=== PATIENT | female | born 1955 | race Caucasian/White ===

== ENCOUNTER → 2019-05-11 | Day surgery (SDC) | payer MEDICARE, OTHER ==
[2019-05-10 09:15] VITALS: BMI 33.0
[~2019-05-11] MED LIST: Acetaminophen 325 MG TAB PO PRN; Bisacodyl 10 MG SUPP PR PRN; Clindamycin/D5W 900 MG in Premix Bag 1 BAG IVPB SCH; Clindamycin/D5W 900 mg/50 ml Premix Bag ONE; Dexamethasone 4 mg/ml Vial SLOW IVP SCH; Dextrose 5% in Water 1,000 ML IV PRN; Dextrose 50% Abboject 50 ML SYRINGE IVP PRN; Fentanyl 100 MCG/2 ML VIAL ONE; Fleet Enema 133 ML BOT PR PRN; Levofloxacin 500 mg/D5W 100 ml Premix Bag ONE; Mag-Al 1200 mg/1200 mg/30 ML UDCUP PO PRN; Meperidine HCl/PF 25 MG/ML VIAL SLOW IVP PRN; Milk Of Magnesia 30 ML UDCUP PO PRN; Ondansetron HCl/PF 4 MG/2 ML Vial IVP PRN; Ondansetron PF 4 MG/2 ML Vial IVP PRN; PROVENTIL INHALER 6.7 G (200 INHALATIONS) INH PRN; Phenylephrine HCL 10 MG/ML VIAL ONE; Promethazine HCl 25 MG/ML VIAL IM PRN; Promethazine HCl 25 MG/ML VIAL IM/IV PRN; SUGAMMADEX SODIUM 200 MG/2 ML VIAL ONE; Scopolamine 1.5 mg/72 hour Patch ONE; Sodium Chloride 0.9% 10 ML ONE; Thrombin 5000 UNITS/5 ML VIAL ONE
[2019-05-11 06:53] LABS: INR-International Normal Ratio 0.9; PTT 31.2 SEC (22.9-36.1); Prothrombin Time 12.4 SEC (12.0-14.7)
--- NOTE | 2019-05-11 11:12 | OP ---
DATE OF PROCEDURE: 05/11/2019 LOCATION: OR 12. WOUND CLASSIFICATION: Type 1 wound. [employer]: Harjinder. PREPROCEDURE DIAGNOSIS: Cervical stenosis with neck pain and arm pain consistent with cervical radiculopathy. POSTPROCEDURE DIAGNOSIS: Cervical stenosis with neck pain and arm pain consistent with cervical radiculopathy. PROCEDURES PERFORMED: 1. C5-C6, C6-C7 anterior diskectomies for decompression of spinal cord nerve roots, preparation of endplates for arthrodesis with placement of interbody spacer, C5-C6, C6-C7. 2. Packing of spacers for arthrodesis with local bone autograft obtained from same incision, allograft. 3. Anterior cervical plate and screw fixation at C5, C6, C7 for fusion. 4. Use of operative microscope for microdissection. DESCRIPTION OF PROCEDURE: After informed consent was obtained from the patient, the patient was brought to the OR. Proper patient, pause, and identification were carried out. The patient was placed under excellent general endotracheal anesthesia and positioned supine on the OR table. All appropriate points were padded. We identified the right anterior oblique linnea that would allow for approach to the anterior C5, C6, C7 segments, and sterile cleansing, preparation, and draping occurred. We then proceeded lateral to the tracheoesophageal bundle medial to the right carotid sheath. We identified the prevertebral layer of deep cervical fascia. Retractors were placed. Localization film confirmed our area of interest. We then performed C5-C6 distraction and we were pleased at that point with our distraction. Diskectomy was then performed with the use of the microscope for microdissection with excellent decompression of common dural tube and C6 nerve roots. Endplates were prepared. Arthrodesis was then initiated with an interbody spacer, packed with graft. We then did the same procedure at C6-C7 with excellent decompression of the common dural tube and bilateral C7 nerve roots. Endplates were prepared and arthrodesis was then initiated again with interbody spacer placement, packed with graft. Copious irrigation occurred throughout as did maximizing hemostasis. We then removed the microscope, and anterior cervical plate and screw fixation at C5, C6 C7 occurred. Hemostasis was maximized. The wound was then closed in anatomic layers following placement of a drain. Job ID: [id number]
[2019-05-11] MEDS: Sodium Chloride 0.9% 1,000 ML IV SCH ×2 (14:28→23:43)
[2019-05-11] MEDS: HYDROcodone/Acetaminophen 10/325 mg Tablet PO PRN ×2 (14:29→20:37)
[2019-05-11] MEDS: tiZANidine HCl 4 MG TAB PO PRN ×2 (14:29→20:37)
[2019-05-11] MEDS: Morphine 4 MG/ML VIAL SLOW IVP PRN ×2 (15:21→21:31)
[2019-05-11] MEDS: Citalopram 20 MG TAB PO SCH (20:28)
[2019-05-11] MEDS: Losartan 25 MG TAB PO SCH (20:28)
[2019-05-11] MEDS: Atorvastatin Calcium 10 MG TAB PO SCH (20:28)
[2019-05-11] MEDS: Gabapentin 300 MG CAP PO SCH (20:28)
[2019-05-11] MEDS: Hyoscyamine Sulfate ER 0.375 mg Tablet PO SCH (20:29)
[2019-05-11] MEDS: Clindamycin/D5W 900 MG in Premix Bag 1 BAG IVPB SCH (23:42)
[2019-05-12] MEDS: Hyoscyamine Sulfate ER 0.375 mg Tablet PO SCH ×2 (09:33→21:29)
[2019-05-12] MEDS: Pioglitazone HCl 15 MG TAB PO SCH (09:33)
[2019-05-12] MEDS: Clindamycin/D5W 900 MG in Premix Bag 1 BAG IVPB SCH ×3 (09:33→23:42)
[2019-05-12] MEDS: Gabapentin 300 MG CAP PO SCH ×2 (09:33→21:28)
[2019-05-12] MEDS: HYDROcodone/Acetaminophen 10/325 mg Tablet PO PRN (09:33)
--- NOTE | 2019-05-12 09:43 | PRG ---
DATE OF SERVICE: 05/12/2019 Ms. Barcenas is postoperative day 1 from C5 to C7 ACDF. She has had resolution in her cervical radiculopathy. Obviously, she has soreness in her cervical paraspinal region with moderate dysphonia. Her drain output has been approximately 20 mL, although there appears to be a bit more in it at this morning than 20 mL. Nevertheless, I think she needs one more day in the hospital for recovery, not unusual with a two-level fusion at her age. Job ID: [id number]
[2019-05-12] MEDS: tiZANidine HCl 4 MG TAB PO PRN (11:00)
[2019-05-12] MEDS: Morphine 4 MG/ML VIAL SLOW IVP PRN ×2 (11:00→21:40)
[2019-05-12] MEDS: HumaLOG 300 UNITS/3 ML VIAL SC PRN ×3 (12:54→22:50)
[2019-05-12] MEDS: Sodium Chloride 0.9% 1,000 ML IV SCH (12:55)
--- NOTE | 2019-05-12 19:48 | PDOC.PN ---
- Subjective Encounter Start Date: 05/12/19 Encounter Start Time: 18:00 Subjective: has some difficulty swallowing, no sob -: pain is better this evening -: at bedside - Objective MAR Reviewed: Yes Vital Signs & Weight: Vital Signs (12 hours) Temp Pulse Resp BP Pulse Ox 05/12/19 15:40 98.1 F 93 16 136/88 93 L 05/12/19 10:56 98.3 F 96 18 143/86 H 98 Weight Weight 175 lb I&O: 05/11/19 05/12/19 05/13/19 06:59 06:59 06:59 Intake Total 1160 Output Total 20 20 Balance 1140 -20 Additional Labs: Accuchecks 05/12/19 05/12/19 05/12/19 16:39 10:53 06:07 POC Glucose 184 H 212 H 193 H 05/11/19 20:18 POC Glucose 145 H Phys Exam - Physical Examination HEENT: PERRLA, sclera anicteric Neck: no JVD has surgical dressing+ Respiratory: no wheezing, no rales Cardiovascular: RRR, no significant murmur Gastrointestinal: soft, non-tender, positive bowel sounds Musculoskeletal: no edema, pulses present Neurological: non-focal, moves all 4 limbs Psychiatric: normal affect, A&O x 3 Dx/Plan (1) Asthma Code(s): J45.909 - UNSPECIFIED ASTHMA, UNCOMPLICATED Status: Chronic Qualifiers: Asthma severity: mild Asthma persistence: intermittent Asthma complication type: uncomplicated Qualified Code(s): J45.20 - Mild intermittent asthma, uncomplicated (2) DM type 2 (diabetes mellitus, type 2) Status: Chronic Qualifiers: Diabetes mellitus intermediate frame tender insulin use: without jail use (3) HTN (hypertension) Code(s): I10 - ESSENTIAL (PRIMARY) HYPERTENSION Status: Chronic Qualifiers: Hypertension type: essential hypertension Qualified Code(s): I10 - Essential (primary) hypertension (4) Dyslipidemia Code(s): E78.5 - HYPERLIPIDEMIA, UNSPECIFIED Status: Chronic (5) Obesity (BMI 30.0-34.9) Code(s): E66.9 - OBESITY, UNSPECIFIED Status: Chronic (6) Irritable bowel syndrome with both constipation and diarrhea Code(s): K58.2 - MIXED IRRITABLE BOWEL SYNDROME Status: Chronic (7) S/P cervical discectomy Code(s): Z98.890 - OTHER SPECIFIED POSTPROCEDURAL STATES Status: Acute Comment: C5-6, 6-7 with stabilization, anterior approach - Plan hemo/neurostable -: continue actos, metformin, cozaar, neurontin, celexa,pravachol -: to mobilize as tolerated -: nebs prn -: likely dc plan in am per nsx * . Review of Systems - Medications/Allergies Allergies/Adverse Reactions: Allergies Allergy/AdvReac Type Severity Reaction Status Date / Time chlorhexidine Allergy Rash Verified 05/10/19 09:15 [From Hibiclens] Penicillins Allergy Rash Verified 05/10/19 09:15 tramadol Allergy Rash Verified 05/10/19 09:15 Medications: Current Medications Acetaminophen (Tylenol) 650 mg PO Q4H PRN PRN Reason: SINGLETARY/Fever Or Mild Pain (1-3) Hydrocodone Bitart/Acetaminophen ([place] 10/325) 1 tab PO Q4HR PRN PRN Reason: Moderate Pain (4-6) Last Admin: 05/12/19 09:33 Dose: 1 tab Al Hydroxide/Mg Hydroxide (Maalox) 30 ml PO Q4H PRN PRN Reason: Indigestion Albuterol Sulfate (Proventil Hfa) 1 puff INH BID PRN PRN Reason: Wheezing Atorvastatin Calcium (Lipitor) 10 mg PO HS ON LICENSE OF [facility] Last Admin: 05/11/19 20:28 Dose: 10 mg Bisacodyl (Dulcolax) 10 mg [place] Q12H PRN PRN Reason: Constipation Citalopram Hydrobromide (Celexa) 20 mg PO [facility] Last Admin: 05/11/19 20:28 Dose: 20 mg Dextrose/Water (Dextrose 50%) 25 gm IVP PRN PRN PRN Reason: HYPOGLYCEMIA PROTOCOL Gabapentin (Neurontin) 300 mg PO BID ON LICENSE OF [facility] Last Admin: 05/12/19 09:33 Dose: 300 mg Glucagon (Glucagon) 1 mg IM PRN PRN PRN Reason: HYPOGLYCEMIA PROTOCOL Hyoscyamine Sulfate (Hyoscyamine Sulfate) 0.375 mg PO BID ON LICENSE OF [facility] Last Admin: 05/12/19 09:33 Dose: 0.375 mg Levofloxacin 500 mg/ Device 100 mls @ 100 mls/hr IVPB 1300 ON LICENSE OF [facility] Last Admin: 05/12/19 12:55 Dose: 100 mls Sodium Chloride (Normal Saline 0.9%) 1,000 mls @ 75 mls/hr IV .[id number] ON LICENSE OF [facility] Last Admin: 05/12/19 12:55 Dose: Not Given Clindamycin Phosphate/Dextrose (900 mg/ Device) 50 mls @ 100 mls/hr IVPB 0800, 1600,2359 ON LICENSE OF [facility] Last Admin: 05/12/19 16:30 Dose: 50 mls Dextrose/Water (D5w) 1,000 mls @ 0 mls/hr IV INF PRN PRN Reason: HYPOGLYCEMIA PROTOCOL Insulin Human Lispro (Humalog) 0 units SC .MILD SLIDING SCALE PRN; Protocol PRN Reason: MILD SLIDING SCALE Last Admin: 05/12/19 16:36 Dose: 2 unit Losartan Potassium (Cozaar) 25 mg PO HS ON LICENSE OF [facility] Last Admin: 05/11/19 20:28 Dose: 25 mg Magnesium Hydroxide (Milk Of Magnesium) 30 ml PO Q12H PRN PRN Reason: Constipation Morphine Sulfate (Morphine) 2 mg SLOW IVP Q1H PRN PRN Reason: Severe Pain (7-10) Last Admin: 05/12/19 11:00 Dose: 2 mg Ondansetron HCl (Zofran) 4 mg IVP Q6H PRN PRN Reason: Nausea Last Admin: 05/12/19 16:35 Dose: 4 mg Pantoprazole Sodium (Protonix) 40 mg PO DAILY ON LICENSE OF [facility] Last Admin: 05/12/19 09:33 Dose: 40 mg Pioglitazone HCl (Actos) 15 mg PO DAILY ON LICENSE OF [facility] Last Admin: 05/12/19 09:33 Dose: 15 mg Promethazine HCl (Phenergan) 12.5 mg IM/IV Q4H PRN PRN Reason: Nausea/Vomiting Sodium Chloride (Flush - Normal Saline) 10 ml IVF PRN PRN PRN Reason: Saline Flush Tizanidine HCl (Zanaflex) 4 mg PO TID PRN PRN Reason: Muscle Spasm Last Admin: 05/12/19 11:00 Dose: 4 mg
[2019-05-12] MEDS: Citalopram 20 MG TAB PO SCH (21:28)
[2019-05-12] MEDS: Atorvastatin Calcium 10 MG TAB PO SCH (21:28)
[2019-05-12] MEDS: Losartan 25 MG TAB PO SCH (21:29)
[2019-05-13] MEDS: Sodium Chloride 0.9% 1,000 ML IV SCH ×2 (03:10→15:00)
[2019-05-13] MEDS: HYDROcodone/Acetaminophen 10/325 mg Tablet PO PRN ×2 (04:14→08:23)
[2019-05-13] MEDS: HumaLOG 300 UNITS/3 ML VIAL SC PRN ×2 (06:08→11:14)
[2019-05-13] MEDS: Gabapentin 300 MG CAP PO SCH (08:22)
[2019-05-13] MEDS: Clindamycin/D5W 900 MG in Premix Bag 1 BAG IVPB SCH ×2 (08:22→15:01)
[2019-05-13] MEDS: tiZANidine HCl 4 MG TAB PO PRN (08:22)
[2019-05-13] MEDS: Hyoscyamine Sulfate ER 0.375 mg Tablet PO SCH (08:23)
[2019-05-13] MEDS: Pioglitazone HCl 15 MG TAB PO SCH (08:23)
--- NOTE | 2019-05-13 10:09 | PRG ---
DATE OF SERVICE: 05/13/2019 Ms. Barcenas continues to recover from her C5 through C7 ACDF. This morning, she describes fatigue is her major issue. From a neurosurgical standpoint, she is doing well. She has mild dysphonia and [id number] dysphagia, but is able to keep Cream of Wheat down. She is diabetic with blood sugars just under 200, but I would like to give her a small dose of Decadron this morning to help with any peripharyngeal edema. Her drain output has been only 30 mL. We will leave this in 1 more day. The patient has mobilized with a rolling walker to the door, but has not yet been in the halls. She needs to ambulate in the hallway today. I am planning for dismissal tomorrow, I feel as the patient is coming along slowly, but surely. Job ID: [id number]
--- NOTE | 2019-05-13 14:38 | PDOC.PN ---
- Subjective Encounter Start Date: 05/13/19 Encounter Start Time: 09:15 Subjective: c/o trouble swallowing, no trouble breathing -: feels weak - Objective MAR Reviewed: Yes Vital Signs & Weight: Vital Signs (12 hours) Temp Pulse Resp BP Pulse Ox 05/13/19 14:01 80 15 05/13/19 10:59 97.8 F 80 12 96/62 91 L 05/13/19 07:56 98.1 F 95 12 129/75 93 L 05/13/19 03:26 97.9 F 109 H 16 149/81 H 92 L Weight Weight 175 lb I&O: 05/12/19 05/13/19 05/14/19 06:59 06:59 06:59 Intake Total 1160 680 Output Total 20 30 Balance 1140 650 Additional Labs: Accuchecks 05/13/19 05/13/19 05/12/19 10:58 05:24 20:32 POC Glucose 197 H 194 H 197 H 05/12/19 16:39 POC Glucose 184 H Phys Exam - Physical Examination HEENT: PERRLA, sclera anicteric dry mucosa Neck: no JVD dressing over ant neck Respiratory: no wheezing rhonchi + Cardiovascular: RRR, no significant murmur Gastrointestinal: soft, non-tender, positive bowel sounds Musculoskeletal: no edema, pulses present Neurological: non-focal, moves all 4 limbs Psychiatric: normal affect, A&O x 3 Dx/Plan (1) Asthma Code(s): J45.909 - UNSPECIFIED ASTHMA, UNCOMPLICATED Status: Chronic Qualifiers: Asthma severity: mild Asthma persistence: intermittent Asthma complication type: uncomplicated Qualified Code(s): J45.20 - Mild intermittent asthma, uncomplicated (2) DM type 2 (diabetes mellitus, type 2) Status: Chronic Qualifiers: Diabetes mellitus detention insulin use: without detention use (3) HTN (hypertension) Code(s): I10 - ESSENTIAL (PRIMARY) HYPERTENSION Status: Chronic Qualifiers: Hypertension type: essential hypertension Qualified Code(s): I10 - Essential (primary) hypertension (4) Dyslipidemia Code(s): E78.5 - HYPERLIPIDEMIA, UNSPECIFIED Status: Chronic (5) Obesity (BMI 30.0-34.9) Code(s): E66.9 - OBESITY, UNSPECIFIED Status: Chronic (6) Irritable bowel syndrome with both constipation and diarrhea Code(s): K58.2 - MIXED IRRITABLE BOWEL SYNDROME Status: Chronic (7) S/P cervical discectomy Code(s): Z98.890 - OTHER SPECIFIED POSTPROCEDURAL STATES Status: Acute Comment: C5-6, 6-7 with stabilization, anterior approach - Plan hemostable -: continue actos, add small dose of lantus for today and tomorrow -: d/w Dr. Andrade, she will have steroids for possible pharyngeal edema -: humolog sliding scale, cozaar, neurontin, lipitor & celexa -: will follow up * . Review of Systems - Medications/Allergies Allergies/Adverse Reactions: Allergies Allergy/AdvReac Type Severity Reaction Status Date / Time chlorhexidine Allergy Rash Verified 05/10/19 09:15 [From Hibiclens] Penicillins Allergy Rash Verified 05/10/19 09:15 tramadol Allergy Rash Verified 05/10/19 09:15 Medications: Current Medications Acetaminophen (Tylenol) 650 mg PO Q4H PRN PRN Reason: SINGLETARY/Fever Or Mild Pain (1-3) Hydrocodone Bitart/Acetaminophen ([place] 10/325) 1 tab PO Q4HR PRN PRN Reason: Moderate Pain (4-6) Last Admin: 05/13/19 08:23 Dose: 1 tab Al Hydroxide/Mg Hydroxide (Maalox) 30 ml PO Q4H PRN PRN Reason: Indigestion Albuterol Sulfate (Proventil Hfa) 1 puff INH BID PRN PRN Reason: Wheezing Albuterol/Ipratropium (Duoneb) 3 ml NEB [id number] [facility] Last Admin: 05/13/19 14:01 Dose: 3 ml Atorvastatin Calcium (Lipitor) 10 mg PO [facility] Last Admin: 05/12/19 21:28 Dose: 10 mg Bisacodyl (Dulcolax) 10 mg [place] Q12H PRN PRN Reason: Constipation Citalopram Hydrobromide (Celexa) 20 mg PO [facility] Last Admin: 05/12/19 21:28 Dose: 20 mg Dextrose/Water (Dextrose 50%) 25 gm IVP PRN PRN PRN Reason: HYPOGLYCEMIA PROTOCOL Gabapentin (Neurontin) 300 mg PO BID [facility] Last Admin: 05/13/19 08:22 Dose: 300 mg Glucagon (Glucagon) 1 mg IM PRN PRN PRN Reason: HYPOGLYCEMIA PROTOCOL Hyoscyamine Sulfate (Hyoscyamine Sulfate) 0.375 mg PO BID [facility] Last Admin: 05/13/19 08:23 Dose: 0.375 mg Levofloxacin 500 mg/ Device 100 mls @ 100 mls/hr IVPB 1300 [facility] Last Admin: 05/13/19 13:40 Dose: 100 mls Sodium Chloride (Normal Saline 0.9%) 1,000 mls @ 75 mls/hr IV .[id number] [facility] Last Admin: 05/13/19 03:10 Dose: Not Given Clindamycin Phosphate/Dextrose (900 mg/ Device) 50 mls @ 100 mls/hr IVPB 0800, 1600,2359 [facility] Last Admin: 05/13/19 08:22 Dose: 50 mls Dextrose/Water (D5w) 1,000 mls @ 0 mls/hr IV INF PRN PRN Reason: HYPOGLYCEMIA PROTOCOL Insulin Human Lispro (Humalog) 0 units SC .MILD SLIDING SCALE PRN; Protocol PRN Reason: MILD SLIDING SCALE Last Admin: 05/13/19 11:14 Dose: 2 unit Losartan Potassium (Cozaar) 25 mg PO HS [facility] Last Admin: 05/12/19 21:29 Dose: 25 mg Magnesium Hydroxide (Milk Of Magnesium) 30 ml PO Q12H PRN PRN Reason: Constipation Morphine Sulfate (Morphine) 2 mg SLOW IVP Q1H PRN PRN Reason: Severe Pain (7-10) Last Admin: 05/12/19 21:40 Dose: 2 mg Ondansetron HCl (Zofran) 4 mg IVP Q6H PRN PRN Reason: Nausea Last Admin: 05/12/19 16:35 Dose: 4 mg Pantoprazole Sodium (Protonix) 40 mg PO DAILY [facility] Last Admin: 05/13/19 08:22 Dose: 40 mg Pioglitazone HCl (Actos) 15 mg PO DAILY [facility] Last Admin: 05/13/19 08:23 Dose: 15 mg Promethazine HCl (Phenergan) 12.5 mg IM/IV Q4H PRN PRN Reason: Nausea/Vomiting Sodium Chloride (Flush - Normal Saline) 10 ml IVF PRN PRN PRN Reason: Saline Flush Last Admin: 05/13/19 08:22 Dose: 10 ml Tizanidine HCl (Zanaflex) 4 mg PO TID PRN PRN Reason: Muscle Spasm Last Admin: 05/13/19 08:22 Dose: 4 mg
[2019-05-13 16:04] VITALS: BP 119/76; TEMP 98.5
== END ==
LOC: SDC 06:05 → EDSEX 06:05 → SURG B 10:55
PROVIDERS: ATTEND Surgery
PROC: 0RG20A0 Fusion of 2 or more Cervical Vertebral Joints with Interbody Fusion Device, Anterior Approach, Anterior Column, Open Approach (ICD-10-PCS; principal; 2019-05-11)
PROC: 0RB30ZZ Excision of Cervical Vertebral Disc, Open Approach (ICD-10-PCS; 2019-05-11)
DX: M48.02 Spinal stenosis, cervical region (principal); M54.12 Radiculopathy, cervical region; J45.20 Mild intermittent asthma, uncomplicated; E11.9 Type 2 diabetes mellitus without complications; I10 Essential (primary) hypertension; E78.5 Hyperlipidemia, unspecified; E66.9 Obesity, unspecified; K58.2 Mixed irritable bowel syndrome; Z98.890 Other specified postprocedural states; Z88.0 Allergy status to penicillin; Z88.5 Allergy status to narcotic agent; Z88.3 Allergy status to other anti-infective agents; Z79.899 Other long term (current) drug therapy; Z68.33 Body mass index [BMI] 33.0-33.9, adult
CPT/HCPCS: 36415; 36416; 76000; 85610; 85730; 93005; 93010; C1713; C1776; J0131; J1956; J2270; J2370; J3010; J3490; L0174

== ENCOUNTER 2019-06-30 12:50 | Outpatient (CLI) | payer MEDICARE, OTHER ==
--- NOTE | 2019-06-30 15:40 | RAD ---
XR Cerv Sp Ap Lat STANDARD: 06/30/2019 12:00 AM CLINICAL INDICATION: Cervical disc degeneration COMPARISON: None. FINDINGS: Fracture:No fracture. Arthropathy:Mild degenerative change of the cervical spine is present at multiple levels. There is evidence of ACDF spanning C5-C7 segments, with anterior metal plate, vertebral body screws, and intervening disc space prostheses. No acute hardware complication. Incidental findings:Calcification of the left lateral soft tissues of the neck and vascular calcifica tion overlying the aortic knob. IMPRESSION: 1. Postoperative cervical spine, without acute hardware complication.
== END 2019-06-30 12:51 | disposition home or self-care (01) ==
LOC: TBSI PT 12:50
PROVIDERS: ATTEND Surgery
DX: M50.30 Other cervical disc degeneration, unspecified cervical region (principal); Z98.890 Other specified postprocedural states
CPT/HCPCS: 72040

== ENCOUNTER 2021-10-22 11:36 | Outpatient (CLI) | payer MEDICARE, OTHER | END 2021-10-22 11:37 | disposition home or self-care (01) | LOC: SCSMRI 11:36 | PROVIDERS: ATTEND Nurse Practitioner Family | DX: M47.26 Other spondylosis with radiculopathy, lumbar region (principal); M48.061 Spinal stenosis, lumbar region without neurogenic claudication; Z98.1 Arthrodesis status | CPT/HCPCS: 72148 ==

== ENCOUNTER 2022-09-02 13:17 | Outpatient (CLI) | payer MEDICARE | END 2022-09-02 13:18 | disposition home or self-care (01) | LOC: SCSMRI 13:17 | PROVIDERS: ATTEND Nurse Practitioner Family | DX: M47.26 Other spondylosis with radiculopathy, lumbar region (principal); M47.815 Spondylosis without myelopathy or radiculopathy, thoracolumbar region | CPT/HCPCS: 72148 ==

== ENCOUNTER 2022-09-04 15:19 | Outpatient (CLI) | payer MEDICARE | END 2022-09-04 15:20 | disposition home or self-care (01) | LOC: BICRAD 15:19 | PROVIDERS: ATTEND Nurse Practitioner Family | DX: M47.817 Spondylosis without myelopathy or radiculopathy, lumbosacral region (principal); Z98.890 Other specified postprocedural states | CPT/HCPCS: 72100 ==

== ENCOUNTER 2022-09-11 12:39 | Outpatient (CLI) | payer MEDICARE | END 2022-09-11 12:40 | disposition home or self-care (01) | LOC: BICRAD 12:39 | PROVIDERS: ATTEND Nurse Practitioner Family | DX: M25.551 Pain in right hip (principal) ==